=== PATIENT | female | born 1950 | race Two or more races ===

== ENCOUNTER 2018-06-08 18:24 | Inpatient (IN) | payer MEDICARE ==
[~2018-06-08] VITALS: Ht 160 cm; Wt 89.5 kg
[2018-06-08] MEDS ORDERED: IV NORMAL SALINE 1000ML BAG 1,000 ML IV SCH (19:22)
[2018-06-08] MEDS ORDERED: ONDANSETRON PF 4 MG/2 ML VIAL. IV ONE (19:30)
[2018-06-08] MEDS ORDERED: IPRATRPIUM/ALBUTEROL 0.5/2.5MG 3 ML NEBU. NEB ONE (19:30)
[2018-06-08 19:49] LABS: BASO # 0.1 x10^3/uL (0.0-0.2); BASO % 1 % (0-3); EOS % 0 % (0-3); HEMOGLOBIN 15.3 g/dL (12.0-15.5); LYMPH # 2.5 x10^3/uL (1.0-4.8); LYMPH % 39 % (24-48); MEAN CORPUSCULAR HEMOGLOBIN 30 pg (25-35); MEAN CORPUSCULAR HGB CONC 33 g/dL (31-37); MEAN CORPUSCULAR VOLUME 89 fL (79-100); MONO # 0.5 x10^3/uL (0.0-1.1); MONO % 8 % (0-9); NEUT # 3.3 x10^3uL (1.8-7.7); NEUT % 51 % (31-73); PLATELET COUNT 218 x10^3/uL (140-400); RED BLOOD COUNT 5.15 x10^6/uL (3.50-5.40); WHITE BLOOD COUNT 6.4 x10^3/uL (4.0-11.0)
[2018-06-08 19:59] LABS: CALCIUM 8.8 mg/dL (8.5-10.1); CREATININE 0.8 mg/dL (0.6-1.0); GFR 71.8; POTASSIUM 3.8 mmol/L (3.5-5.1)
[2018-06-08 20:04] LABS: ALBUMIN 3.3 g/dL (3.4-5.0); ALBUMIN/GLOBULIN RATIO 0.8 (1.0-1.7); TOTAL BILIRUBIN 0.3 mg/dL (0.2-1.0); TOTAL PROTEIN 7.7 g/dL (6.4-8.2)
[2018-06-08] MEDS: fentaNYL PF VIAL 100 MCG/2 ML VIAL IV PRN ×2 (20:12→21:03)
[2018-06-08 20:36] LABS: BILIRUBIN,URINE NEGATIVE (NEG); CLARITY,URINE CLEAR; COLOR,URINE YELLOW; NITRITE,URINE NEGATIVE (NEG); PH,URINE 5.5; PROTEIN,URINE NEGATIVE (NEG-TRACE); UROBILINOGEN,URINE 0.2 mg/dL (0.2 mg/dL)
[2018-06-08 20:38] LABS: INFLUENZA A PATIENT NEGATIVE (NEGATIVE); INFLUENZA B PATIENT NEGATIVE (NEGATIVE)
[2018-06-08 20:45] LABS: AMORPHOUS SEDIMENT,UR PRESENT /HPF; BACTERIA,URINE 0 /HPF (0-FEW); GRANULAR CASTS,URINE OCCASIONAL /HPF; RBC,URINE OCC /HPF (0-2); SQUAMOUS EPITHELIAL CELL,UR MOD /LPF; WBC,URINE RARE /HPF (0-4)
--- NOTE | 2018-06-08 20:55 | PHYS DOC ---
Past Medical History Past Medical History: Anxiety Past Surgical History: Cholecystectomy, Hysterectomy, Tonsillectomy Alcohol Use: None Drug Use: None Adult General Chief Complaint Chief Complaint: SHORTNESS OF BREATH HPI HPI Patient is a 67-year-old female who presents with complaint of productive cough , fever and chills that started a few days ago. Patient also complains of headache and nausea along with pain in both of her lateral rib margins that she states is due to all the coughing. She states that every time she coughs she feels a lot of pressure in her head that she rates at a 9 out of 10. She denies any neck pain or back pain. Patient states that symptoms are progressively getting worse. She does feel little bit short of breath with exertion. Review of Systems Review of Systems Constitutional: Positive fever and chills [] Respiratory: Positive cough and shortness of breath [] Cardiovascular: No additional information not addressed in HPI [] GI: Denies abdominal pain. Complains of nausea without vomiting or diarrhea. [] : Denies dysuria or hematuria [] Neurologic: Complains of headache without focal weakness or sensory changes [] All other systems were reviewed and found to be within normal limits, except as documented in this note. Current Medications Current Medications Current Medications Medications (Trade) Dose Ordered Sig/Siomara Start Time Stop Time Status Last Admin Dose Admin Albuterol/ Ipratropium (Duoneb) 3 ml 1X ONCE 06/08/18 19:30 06/08/18 19:31 DC 06/08/18 19:54 3 ML Fentanyl Citrate (Fentanyl 2ml Vial) 25 mcg PRN Q15MIN PRN 06/08/18 19:30 06/09/18 19:29 06/08/18 21:03 25 MCG Levofloxacin/ Dextrose 100 ml @ 100 mls/hr 1X ONCE 06/08/18 21:00 06/08/18 21:59 DC 06/08/18 21:03 100 MLS/HR Ondansetron HCl (Zofran) 4 mg 1X ONCE 06/08/18 19:30 06/08/18 19:31 DC 06/08/18 19:49 4 MG Sodium Chloride 1,000 ml @ 1,000 mls/hr Q1H 06/08/18 19:22 06/08/18 20:21 DC 06/08/18 19:48 1,000 MLS/HR Allergies Allergies Allergies Coded Allergies Type Severity Reaction Last Updated Verified aspirin Allergy Intermediate 06/08/18 Yes codeine Adverse Reaction Intermediate HALLUCINATE 06/08/18 Yes Penicillins Adverse Reaction Mild VOMIT 06/08/18 Yes Physical Exam Physical Exam Constitutional: Well developed, well nourished, appears uncomfortable. [] HENT: Normocephalic, atraumatic, bilateral external ears normal, oropharynx moist, no oral exudates, nose normal. [] Eyes: PERRLA, EOMI, conjunctiva normal, no discharge. [] Neck: Normal range of motion, no tenderness, supple, no stridor. [] Cardiovascular: Regular rate and rhythm[] Lungs & Thorax: Fine rhonchi are noted in the bilateral lung bases, left greater than right to auscultation [] Abdomen: Bowel sounds normal, soft, no tenderness. [] Skin: Warm, dry, no erythema, no rash. [] Extremities: No tenderness, no cyanosis, no clubbing, ROM intact, no edema. [] Neurologic: Alert and oriented X 3, no focal deficits noted. [] Current Patient Data Vital Signs Vital Signs Date Time Temp Pulse Resp B/P (MAP) Pulse Ox O2 Delivery O2 Flow Rate FiO2 06/08/18 21:03 24 97 Room Air 06/08/18 20:52 98.2 78 126/58 (80) 98.2 Lab Values Laboratory Tests Test 06/08/18 19:20 06/08/18 19:35 06/08/18 20:20 Influenza Type A Antigen Negative (NEGATIVE) Influenza Type B Antigen Negative (NEGATIVE) White Blood Count 6.4 x10^3/uL (4.0-11.0) Red Blood Count 5.15 x10^6/uL (3.50-5.40) Hemoglobin 15.3 g/dL (12.0-15.5) Hematocrit 46.0 % (36.0-47.0) Mean Corpuscular Volume 89 fL (79-100) Mean Corpuscular Hemoglobin 30 pg (25-35) Mean Corpuscular Hemoglobin Concent 33 g/dL (31-37) Red Cell Distribution Width 14.0 % (11.5-14.5) Platelet Count 218 x10^3/uL (140-400) Neutrophils (%) (Auto) 51 % (31-73) Lymphocytes (%) (Auto) 39 % (24-48) Monocytes (%) (Auto) 8 % (0-9) Eosinophils (%) (Auto) 0 % (0-3) Basophils (%) (Auto) 1 % (0-3) Neutrophils # (Auto) 3.3 x10^3uL (1.8-7.7) Lymphocytes # (Auto) 2.5 x10^3/uL (1.0-4.8) Monocytes # (Auto) 0.5 x10^3/uL (0.0-1.1) Eosinophils # (Auto) 0.0 x10^3/uL (0.0-0.7) Basophils # (Auto) 0.1 x10^3/uL (0.0-0.2) Sodium Level 139 mmol/L (136-145) Potassium Level 3.8 mmol/L (3.5-5.1) Chloride Level 101 mmol/L (98-107) Carbon Dioxide Level 23 mmol/L (21-32) Anion Gap 15 (6-14) H Blood Urea Nitrogen 16 mg/dL (7-20) Creatinine 0.8 mg/dL (0.6-1.0) Estimated GFR (Cockcroft-Gault) 71.8 BUN/Creatinine Ratio 20 (6-20) Glucose Level 96 mg/dL (70-99) Lactic Acid Level 1.7 mmol/L (0.4-2.0) Calcium Level 8.8 mg/dL (8.5-10.1) Total Bilirubin 0.3 mg/dL (0.2-1.0) Aspartate Amino Transferase (AST) 23 U/L (15-37) Alanine Aminotransferase (ALT) 18 U/L (14-59) Alkaline Phosphatase 92 U/L (46-116) VV-Dnx-K-Type Natriuretic Peptide 67 pg/mL (0-124) Total Protein 7.7 g/dL (6.4-8.2) Albumin 3.3 g/dL (3.4-5.0) L Albumin/Globulin Ratio 0.8 (1.0-1.7) L Urine Collection Type Unknown Urine Color Yellow Urine Clarity Clear Urine pH 5.5 Urine Specific [place] 1.025 Urine Protein Negative mg/dL (NEG-TRACE) Urine Glucose (UA) Negative mg/dL (NEG) Urine Ketones (Stick) 15 mg/dL (NEG) Urine Blood Trace (NEG) Urine Nitrite Negative (NEG) Urine Bilirubin Negative (NEG) Urine Urobilinogen Dipstick 0.2 mg/dL (0.2 mg/dL) Urine Leukocyte Esterase Negative (NEG) Urine RBC Occ /HPF (0-2) Urine WBC Rare /HPF (0-4) Urine Squamous Epithelial Cells Mod /LPF Urine Amorphous Sediment Present /HPF Urine Bacteria 0 /HPF (0-FEW) Urine Granular Casts Occasional /HPF Urine Mucus Mod /LPF Laboratory Tests 06/08/18 19:35 Laboratory Tests 06/08/18 19:35 EKG EKG [] Interpretation Time: EKG demonstrates a sinus rhythm with rate of 74. Radiology/Procedures Radiology/Procedures [] Impressions: Chest x-ray demonstrates bibasilar infiltrate Course & Med Decision Making Course & Med Decision Making Pertinent Labs and Imaging studies reviewed. (See chart for details) [] Dragon Disclaimer Dragon Disclaimer This electronic medical record was generated, in whole or in part, using a voice recognition dictation system. Departure Departure Impression: Primary Impression: Community acquired pneumonia Disposition: ADMITTED INPATIENT Admitting Physician: Ovidio Tucker Condition: IMPROVED Referrals: UNKNOWN PCP NAME (PCP) Problem Qualifiers Primary Impression: Community acquired pneumonia Laterality: unspecified laterality Qualified Codes: J18.9 - Pneumonia, unspecified organism IGNACIO TOPETE Jr. DO Jun 08, 2018 20:55
--- NOTE | 2018-06-08 22:29 | RAD ---
CT HEAD WO CONTRAST History: Severe headache Comparison: None. Technique: Noncontrast CT imaging was performed of the head. Exposure: One or more of the following individualized dose reduction techniques were utilized for this examination: 1. Automated exposure control 2. Adjustment of the mA and/or kV according to patient size 3. Use of iterative reconstruction technique. Findings: There is mild motion. No acute extra-axial or parenchymal hemorrhage is identified. There is no significant intra-axial mass effect, midline shift, or extra-axial fluid collection. The sanchez-white differentiation of the major vascular territories is preserved. The ventricles, sulci, and cisterns are within normal limits in size and configuration. The mastoid air cells and the visualized paranasal sinuses are aerated. No acute calvarial abnormality is identified. There is right germain bullosa. Impression: 1. No acute intracranial abnormality is identified. Electronically signed by: Roberto Giron MD (06/08/2018 10:26 PM) [facility]
[2018-06-08] MEDS ORDERED: ONDANSETRON PF 4 MG/2 ML VIAL. IV PRN (23:15)
[2018-06-08] MEDS ORDERED: MORPHINE SULFATE 4 MG/ML VIAL. IV PRN (23:15)
[2018-06-08] MEDS ORDERED: ACETAMINOPHEN 325 MG TABLET. PO PRN (23:15)
[2018-06-09] VITALS (8 sets, daily range): BP systolic 116–137; BP diastolic 41–59
[2018-06-09] MEDS: IV NORMAL SALINE 1000ML BAG 1,000 ML IV SCH ×3 (00:49→19:15)
[2018-06-09 06:45] LABS: BASO # 0.1 x10^3/uL (0.0-0.2); BASO % 1 % (0-3); EOS % 0 % (0-3); HEMATOCRIT 40.7 % (36.0-47.0); HEMOGLOBIN 13.4 g/dL (12.0-15.5); LYMPH % 54 % (24-48); MEAN CORPUSCULAR HEMOGLOBIN 30 pg (25-35); MEAN CORPUSCULAR HGB CONC 33 g/dL (31-37); MEAN CORPUSCULAR VOLUME 90 fL (79-100); MONO # 0.5 x10^3/uL (0.0-1.1); MONO % 9 % (0-9); NEUT % 36 % (31-73); PLATELET COUNT 181 x10^3/uL (140-400); RED BLOOD COUNT 4.54 x10^6/uL (3.50-5.40); WHITE BLOOD COUNT 5.5 x10^3/uL (4.0-11.0)
--- NOTE | 2018-06-09 06:58 | EKG ---
[facility] [address] [place] [address] Test Date: 2018-06-08 Test Time: 19:13:30 Pat Name: WILLIAM KANG Department: Room: [facility] Gender: F Evs Attendant: MANISH : 1950 Requested By: IGNACIO TOPETE Order Number: [id number] Reading MD: Kraig Mccain MD Measurements Intervals [place] Rate: 73 P: 37 WA: 142 QRS: -28 QRSD: 76 T: 18 QT: 374 QTc: 415 Interpretive Statements SINUS RHYTHM Electronically Signed On 06-10-2018 16:34:19 CDT by Kraig Mccain MD
[2018-06-09 07:02] LABS: CALCIUM 8.1 mg/dL (8.5-10.1); CREATININE 0.6 mg/dL (0.6-1.0); POTASSIUM 3.6 mmol/L (3.5-5.1)
--- NOTE | 2018-06-09 07:14 | NUR ---
Pt admitted this am with complaints of coughing and discomfort with VALENZUELA due to coughing. Pt given fentanyl IV in ED for pain. Pt with pain medication available however not asking for any at this time. Pt ambulating with steady gait with assist of nurse. Pt uses a cane at home. Pt with IV fluids infusing at this time. No complaints noted. Pt instructed to call for assistance. Pt verbalize understanding.
[2018-06-09] MEDS: IPRATRPIUM/ALBUTEROL 0.5/2.5MG 3 ML NEBU. NEB SCH ×4 (07:23→20:24)
--- NOTE | 2018-06-09 08:18 | PDOC1 ---
History and Physical Date of Admission Date of Admission DATE: 06/09/18 TIME: 08:17 Identification/Chief Complaint Chief Complaint Shortness of breath Source Source: Chart review, Patient History of Present Illness History of Present Illness 67-year-old female smoker who presents with complaint of productive cough, fever and chills that started a few days ago. Patient also complains of headache and nausea along with pain in both of her lateral rib margins that she states is due to all the coughing. She states that every time she coughs she feels a lot of pressure in her head that she rates at a 9 out of 10. She rates her rib pain 7/10 when she coughs. She denies any neck pain or back pain. Patient states that symptoms are progressively getting worse. She does feel little bit short of breath with exertion. Rapid flu negative. She is concerned her sputum has turned from yellow to sanchez. She quit smoking this past wednesday. Past Medical History Cardiovascular: No pertinent hx Pulmonary: No pertinent hx GI: No pertinent hx Heme/Onc: No pertinent hx Hepatobiliary: No pertinent hx Psych: No pertinent hx Rheumatologic: No pertinent hx Infectious disease: No pertinent hx ENT: No pertinent hx Renal/: No pertinent hx Endocrine: No pertinent hx Dermatology: No pertinent hx Past Surgical History Past Surgical History: No pertinent history Family History Family History: Family History Unknown Social History Smoke: 1 pack per day ALCOHOL: rare Drugs: None Current Problem List Problem List Problems Medical Problems: (1) Community acquired pneumonia Status: Acute Current Medications Current Medications Current Medications Sodium Chloride 1,000 ml @ 1,000 mls/hr Q1H IV Last administered on 06/08/18at 19:48; Start 06/08/18 at 19:22; Stop 06/08/18 at 20:21; Status DC Albuterol/ Ipratropium (Duoneb) 3 ml 1X ONCE NEB Last administered on at 19:54; Start 06/08/18 at 19:30; Stop 06/08/18 at 19:31; Status DC Fentanyl Citrate (Fentanyl 2ml Vial) 25 mcg PRN Q15MIN PRN IV PAIN GREATER THAN 3/10 Last administered on 06/08/18at 21:03; Start 06/08/18 at 19:30; Stop at 19:29 Ondansetron HCl (Zofran) 4 mg 1X ONCE IV Last administered on 06/08/18at 19:49 ; Start 06/08/18 at 19:30; Stop 06/08/18 at 19:31; Status DC Levofloxacin/ Dextrose 100 ml @ 100 mls/hr 1X ONCE IV Last administered on at 21:03; Start 06/08/18 at 21:00; Stop 06/08/18 at 21:59; Status DC Ondansetron HCl (Zofran) 4 mg PRN Q8HRS PRN IV NAUSEA/VOMITING; Start 06/08/18 at 23:15; Stop 06/09/18 at 23:14 Morphine Sulfate (Morphine Sulfate) 2 mg PRN Q2HR PRN IV PAIN; Start 06/08/18 at 23:15; Stop 06/09/18 at 23:14 Sodium Chloride 1,000 ml @ 100 mls/hr Q10H IV Last administered on 06/09/18at 00:49; Start 06/08/18 at 23:15; Stop 06/09/18 at 23:14 Acetaminophen (Tylenol) 650 mg PRN Q4HRS PRN PO FEVER; Start 06/08/18 at 23:15 ; Stop 06/09/18 at 23:14 Albuterol/ Ipratropium (Duoneb) 3 ml RTQID NEB Last administered on 06/09/18at 07:23; Start 06/09/18 at 08:00; Stop 06/10/18 at 07:59 Influenza Virus Vaccine (Afluria Trivalent [id number] Syringe) 0.5 ml ONCE ONCE VAX IM ; Start 06/09/18 at 09:00; Stop 06/09/18 at 09:01 Allergies Allergies: Coded Allergies: aspirin (Verified Allergy, Intermediate, 06/08/18) codeine (Verified Adverse Reaction, Intermediate, HALLUCINATE, 06/08/18) Penicillins (Verified Adverse Reaction, Mild, VOMIT, 06/08/18) ROS General: YES: Fatigue, Malaise, Appetite; No: Chills, Night Sweats, Other PSYCHOLOGICAL ROS: No: Anxiety, Behavioral Disorder, Concentration difficultie , Decreased libido, Depression, Disorientation, Hallucinations, Hostility, Irritablity, Memory difficulties, Mood Swings, Obsessive thoughts, Physical abuse, Sexual abuse, Sleep disturbances, Suicidal ideation, Other Eyes: No Blurry vision, No Decreased vision, No Double vision, No Dry eyes, No Excessive tearing, No Eye Pain, No Itchy Eyes, No Loss of vision, No Photophobia , No Scotomata, No Uses contacts, No Uses glasses, No Other HEENT: No: Heacaches, Visual Changes, Hearing change, Nasal congestion, Nasal discharge, Oral lesions, Sinus pain, Sore Throat, Epistaxis, Sneezing, Snoring, Tinnitus, Vertigo, Vocal changes, Other ALLERGY AND IMMUNOLOGY: No: Hives, Insect Bite Sensitivity, Itchy/Watery Eyes, Nasal Congestion, Post Nasal Drip, Seasonal Allergies, Other Hematological and Lymphatic: No: Bleeding Problems, Blood Clots, Blood Transfusions, Brusing, Night Sweats, Pallor, Swollen Lymph Nodes, Other ENDOCRINE: No: Breast Changes, Galactorrhea, Hair Pattern Changes, Hot Flashes , Malaise/lethargy, Mood Swings, Palpitations, Polydipsia/polyuria, Skin Changes , Temperature Intolerance, Unexpected Weight Changes, Other Breast: No New/Changing Breast Lumps, No Nipple changes, No Nipple discharge, No Other Respiratory: YES: Cough, Pleuritic Pain, Shortness of breath, SOB with excertion, Sputum Changes, Tachypnea, Wheezing; No: Hemoptysis, Orthopnea, Stridor, Other Cardiovascular: No Chest Pain, No Palpitations, No Orthopnea, No Paroxysmal Noc. Dyspnea, No Edema, No Lt Headedness, No Other Gastrointestinal: Yes Nausea; No Vomiting, No Abdominal Pain, No Diarrhea, No Constipation, No Melena, No Hematochezia, No Other Genitourinary: No Dysuria, No Frequency, No Incontinence, No Hematuria, No Retention, No Discharge, No Urgency, No Pain, No Flank Pain, No Other, No , No , No , No , No , No , No Musculoskeletal: No Gait Disturbance, No Joint Pain, No Joint Stiffness, No Joint Swelling, No Muscle Pain, No Muscular Weakness, No Pain In:, No Swelling In:, No Other Neurological: No Behavorial Changes, No Bowel/Bladder ControlChng, No Confusion , No Dizziness, No Gait Disturbance, No Headaches, No Impaired Coord/balance, No Memory Loss, No Numbness/Tingling, No Seizures, No Speech Problems, No Tremors, No Visual Changes, No Weakness, No Other Skin: No Dry Skin, No Eczema, No Hair Changes, No Lumps, No Mole Changes, No Mottling, No Nail Changes, No Pruritus, No Rash, No Skin Lesion Changes, No Other, No Acne Vitals Vitals Vital Signs Date Time Temp Pulse Resp B/P (MAP) Pulse Ox O2 Delivery O2 Flow Rate FiO2 06/09/18 07:23 94 Room Air 06/09/18 07:00 98.2 73 18 116/53 (74) 98.2 Labs Labs Laboratory Tests Test 06/08/18 19:20 06/08/18 19:35 06/08/18 20:20 06/09/18 06:11 Influenza Type A Antigen Negative (NEGATIVE) Influenza Type B Antigen Negative (NEGATIVE) White Blood Count 6.4 x10^3/uL (4.0-11.0) 5.5 x10^3/uL (4.0-11.0) Red Blood Count 5.15 x10^6/uL (3.50-5.40) 4.54 x10^6/uL (3.50-5.40) Hemoglobin 15.3 g/dL (12.0-15.5) 13.4 g/dL (12.0-15.5) Hematocrit 46.0 % (36.0-47.0) 40.7 % (36.0-47.0) Mean Corpuscular Volume 89 fL (79-100) 90 fL (79-100) Mean Corpuscular Hemoglobin 30 pg (25-35) 30 pg (25-35) Mean Corpuscular Hemoglobin Concent 33 g/dL (31-37) 33 g/dL (31-37) Red Cell Distribution Width 14.0 % (11.5-14.5) 14.0 % (11.5-14.5) Platelet Count 218 x10^3/uL (140-400) 181 x10^3/uL (140-400) Neutrophils (%) (Auto) 51 % (31-73) 36 % (31-73) Lymphocytes (%) (Auto) 39 % (24-48) 54 % (24-48) Monocytes (%) (Auto) 8 % (0-9) 9 % (0-9) Eosinophils (%) (Auto) 0 % (0-3) 0 % (0-3) Basophils (%) (Auto) 1 % (0-3) 1 % (0-3) Neutrophils # (Auto) 3.3 x10^3uL (1.8-7.7) 2.0 x10^3uL (1.8-7.7) Lymphocytes # (Auto) 2.5 x10^3/uL (1.0-4.8) 3.0 x10^3/uL (1.0-4.8) Monocytes # (Auto) 0.5 x10^3/uL (0.0-1.1) 0.5 x10^3/uL (0.0-1.1) Eosinophils # (Auto) 0.0 x10^3/uL (0.0-0.7) 0.0 x10^3/uL (0.0-0.7) Basophils # (Auto) 0.1 x10^3/uL (0.0-0.2) 0.1 x10^3/uL (0.0-0.2) Sodium Level 139 mmol/L (136-145) 137 mmol/L (136-145) Potassium Level 3.8 mmol/L (3.5-5.1) 3.6 mmol/L (3.5-5.1) Chloride Level 101 mmol/L (98-107) 102 mmol/L (98-107) Carbon Dioxide Level 23 mmol/L (21-32) 24 mmol/L (21-32) Anion Gap 15 (6-14) 11 (6-14) Blood Urea Nitrogen 16 mg/dL (7-20) 11 mg/dL (7-20) Creatinine 0.8 mg/dL (0.6-1.0) 0.6 mg/dL (0.6-1.0) Estimated GFR (Cockcroft-Gault) 71.8 100.0 BUN/Creatinine Ratio 20 (6-20) Glucose Level 96 mg/dL (70-99) 94 mg/dL (70-99) Lactic Acid Level 1.7 mmol/L (0.4-2.0) Calcium Level 8.8 mg/dL (8.5-10.1) 8.1 mg/dL (8.5-10.1) Total Bilirubin 0.3 mg/dL (0.2-1.0) Aspartate Amino Transf (AST/SGOT) 23 U/L (15-37) Alanine Aminotransferase (ALT/SGPT) 18 U/L (14-59) Alkaline Phosphatase 92 U/L (46-116) CJ-Uqg-A-Type Natriuretic Peptide 67 pg/mL (0-124) Total Protein 7.7 g/dL (6.4-8.2) Albumin 3.3 g/dL (3.4-5.0) Albumin/Globulin Ratio 0.8 (1.0-1.7) Urine Collection Type Unknown Urine Color Yellow Urine Clarity Clear Urine pH 5.5 Urine Specific [place] 1.025 Urine Protein Negative mg/dL (NEG-TRACE) Urine Glucose (UA) Negative mg/dL (NEG) Urine Ketones (Stick) 15 mg/dL (NEG) Urine Blood Trace (NEG) Urine Nitrite Negative (NEG) Urine Bilirubin Negative (NEG) Urine Urobilinogen Dipstick 0.2 mg/dL (0.2 mg/dL) Urine Leukocyte Esterase Negative (NEG) Urine RBC Occ /HPF (0-2) Urine WBC Rare /HPF (0-4) Urine Squamous Epithelial Cells Mod /LPF Urine Amorphous Sediment Present /HPF Urine Bacteria 0 /HPF (0-FEW) Urine Granular Casts Occasional /HPF Urine Mucus Mod /LPF Laboratory Tests Test 06/08/18 19:20 06/08/18 19:35 06/08/18 20:20 06/09/18 06:11 Influenza Type A Antigen Negative (NEGATIVE) Influenza Type B Antigen Negative (NEGATIVE) White Blood Count 6.4 x10^3/uL (4.0-11.0) 5.5 x10^3/uL (4.0-11.0) Red Blood Count 5.15 x10^6/uL (3.50-5.40) 4.54 x10^6/uL (3.50-5.40) Hemoglobin 15.3 g/dL (12.0-15.5) 13.4 g/dL (12.0-15.5) Hematocrit 46.0 % (36.0-47.0) 40.7 % (36.0-47.0) Mean Corpuscular Volume 89 fL (79-100) 90 fL (79-100) Mean Corpuscular Hemoglobin 30 pg (25-35) 30 pg (25-35) Mean Corpuscular Hemoglobin Concent 33 g/dL (31-37) 33 g/dL (31-37) Red Cell Distribution Width 14.0 % (11.5-14.5) 14.0 % (11.5-14.5) Platelet Count 218 x10^3/uL (140-400) 181 x10^3/uL (140-400) Neutrophils (%) (Auto) 51 % (31-73) 36 % (31-73) Lymphocytes (%) (Auto) 39 % (24-48) 54 % (24-48) Monocytes (%) (Auto) 8 % (0-9) 9 % (0-9) Eosinophils (%) (Auto) 0 % (0-3) 0 % (0-3) Basophils (%) (Auto) 1 % (0-3) 1 % (0-3) Neutrophils # (Auto) 3.3 x10^3uL (1.8-7.7) 2.0 x10^3uL (1.8-7.7) Lymphocytes # (Auto) 2.5 x10^3/uL (1.0-4.8) 3.0 x10^3/uL (1.0-4.8) Monocytes # (Auto) 0.5 x10^3/uL (0.0-1.1) 0.5 x10^3/uL (0.0-1.1) Eosinophils # (Auto) 0.0 x10^3/uL (0.0-0.7) 0.0 x10^3/uL (0.0-0.7) Basophils # (Auto) 0.1 x10^3/uL (0.0-0.2) 0.1 x10^3/uL (0.0-0.2) Sodium Level 139 mmol/L (136-145) 137 mmol/L (136-145) Potassium Level 3.8 mmol/L (3.5-5.1) 3.6 mmol/L (3.5-5.1) Chloride Level 101 mmol/L (98-107) 102 mmol/L (98-107) Carbon Dioxide Level 23 mmol/L (21-32) 24 mmol/L (21-32) Anion Gap 15 (6-14) 11 (6-14) Blood Urea Nitrogen 16 mg/dL (7-20) 11 mg/dL (7-20) Creatinine 0.8 mg/dL (0.6-1.0) 0.6 mg/dL (0.6-1.0) Estimated GFR (Cockcroft-Gault) 71.8 100.0 BUN/Creatinine Ratio 20 (6-20) Glucose Level 96 mg/dL (70-99) 94 mg/dL (70-99) Lactic Acid Level 1.7 mmol/L (0.4-2.0) Calcium Level 8.8 mg/dL (8.5-10.1) 8.1 mg/dL (8.5-10.1) Total Bilirubin 0.3 mg/dL (0.2-1.0) Aspartate Amino Transf (AST/SGOT) 23 U/L (15-37) Alanine Aminotransferase (ALT/SGPT) 18 U/L (14-59) Alkaline Phosphatase 92 U/L (46-116) YS-Xqm-B-Type Natriuretic Peptide 67 pg/mL (0-124) Total Protein 7.7 g/dL (6.4-8.2) Albumin 3.3 g/dL (3.4-5.0) Albumin/Globulin Ratio 0.8 (1.0-1.7) Urine Collection Type Unknown Urine Color Yellow Urine Clarity Clear Urine pH 5.5 Urine Specific [place] 1.025 Urine Protein Negative mg/dL (NEG-TRACE) Urine Glucose (UA) Negative mg/dL (NEG) Urine Ketones (Stick) 15 mg/dL (NEG) Urine Blood Trace (NEG) Urine Nitrite Negative (NEG) Urine Bilirubin Negative (NEG) Urine Urobilinogen Dipstick 0.2 mg/dL (0.2 mg/dL) Urine Leukocyte Esterase Negative (NEG) Urine RBC Occ /HPF (0-2) Urine WBC Rare /HPF (0-4) Urine Squamous Epithelial Cells Mod /LPF Urine Amorphous Sediment Present /HPF Urine Bacteria 0 /HPF (0-FEW) Urine Granular Casts Occasional /HPF Urine Mucus Mod /LPF Images Images CT head - 1. No acute intracranial abnormality is identified. CXR - Mild bibasilar lung airspace opacities likely atelectasis or infiltrates. VTE Prophylaxis Ordered VTE Prophylaxis Devices: No VTE Pharmacological Prophylaxi: Yes Assessment/Plan Assessment/Plan A/P: Shortness of breath - with her history of smoking likely has undiagnosed COPD, nebs for now Community acquired pneumonia - with bilateral infiltrates, will need atypical coverage - levaquin for now Smoker - counseled, she has quit, does not wish for nicotine replacement therapy. FEN - General diet PPX - lovenox FULL CODE Inpatient for community acquired pneumonia, likely 2 midnights. OSIRIS ROBLES MD Jun 09, 2018 08:18
--- NOTE | 2018-06-09 08:28 | RAD ---
Chest, PA and Lateral: Technique: PA and lateral views of the chest were obtained. History: Shortness of breath, dizziness. Comparison: None available. Findings: The heart size grossly appears unremarkable. Mild bibasilar lung airspace opacities likely atelectasis or infiltrates. Mild degenerative changes thoracic spine. IMPRESSION: Mild bibasilar lung airspace opacities likely atelectasis or infiltrates. Electronically signed by: Osman Reeves MD (06/09/2018 8:24 AM) [id number]
--- NOTE | 2018-06-09 14:33 | NUR ---
SW following for discharge planning. Chart reviewed. Pt lives at home with family. No discharge recommendations/SW needs noted at this time. SW will continue to follow.
[2018-06-09] MEDS ORDERED: ONDANSETRON PF 4 MG/2 ML VIAL. IV PRN (14:45)
[2018-06-09] MEDS ORDERED: ENOXAPARIN 40 MG/0.4 ML SYRINGE. SQ SCH (16:00)
[2018-06-09] MEDS: KETOROLAC 30 MG/ML VIAL. IV PRN (16:38)
[2018-06-10] MEDS: KETOROLAC 30 MG/ML VIAL. IV PRN ×2 (01:32→08:50)
[2018-06-10 03:08] VITALS: BP 125/51
[2018-06-10 07:00] VITALS: BP 136/57
[2018-06-10] MEDS: IPRATRPIUM/ALBUTEROL 0.5/2.5MG 3 ML NEBU. NEB SCH ×2 (07:12→11:34)
--- NOTE | 2018-06-10 08:26 | PDOC ---
PROGRESS NOTES Chief Complaint Chief Complaint A/P: Shortness of breath - with her history of smoking likely has undiagnosed COPD, nebs for now Community acquired pneumonia - with bilateral infiltrates, will need atypical coverage - levaquin for now Smoker - counseled, she has quit, does not wish for nicotine replacement therapy. FEN - General diet PPX - lovenox FULL CODE Inpatient for community acquired pneumonia, likely 2 midnights. History of Present Illness History of Present Illness 67-year-old female smoker who presents with complaint of productive cough, fever and chills that started a few days ago. Patient also complains of headache and nausea along with pain in both of her lateral rib margins that she states is due to all the coughing. She states that every time she coughs she feels a lot of pressure in her head that she rates at a 9 out of 10. She rates her rib pain 7/10 when she coughs. She denies any neck pain or back pain. Patient states that symptoms are progressively getting worse. She does feel little bit short of breath with exertion. Rapid flu negative. She is concerned her sputum has turned from yellow to sanchez. She quit smoking this past wednesday. After nebulizer treatments overnight for 2 nights and levaquin for community acquired pneumonia she has improved. She feels much better and feels she wishes to go home before "I catch something else". Denies CP or GI symptoms Vitals Vitals Vital Signs Date Time Temp Pulse Resp B/P (MAP) Pulse Ox O2 Delivery O2 Flow Rate FiO2 06/10/18 07:13 95 Room Air 06/10/18 03:08 98.6 69 18 125/51 (75) 98.6 Physical Exam General: Alert, Oriented X3, Cooperative Heart: Regular rate, Normal S1, Normal S2 Lungs: Crackles Abdomen: Normal bowel sounds, Soft Extremities: No clubbing, No cyanosis Skin: No rashes, No breakdown Assessment and Plan Assessmemt and Plan Problems Medical Problems: (1) Community acquired pneumonia Status: Acute Comment Review of Relevant I have reviewed the following items yadira (where applicable) has been applied. Labs Laboratory Tests Test 06/08/18 19:20 06/08/18 19:35 06/08/18 20:20 06/09/18 06:11 Influenza Type A Antigen Negative (NEGATIVE) Influenza Type B Antigen Negative (NEGATIVE) White Blood Count 6.4 x10^3/uL (4.0-11.0) 5.5 x10^3/uL (4.0-11.0) Red Blood Count 5.15 x10^6/uL (3.50-5.40) 4.54 x10^6/uL (3.50-5.40) Hemoglobin 15.3 g/dL (12.0-15.5) 13.4 g/dL (12.0-15.5) Hematocrit 46.0 % (36.0-47.0) 40.7 % (36.0-47.0) Mean Corpuscular Volume 89 fL (79-100) 90 fL (79-100) Mean Corpuscular Hemoglobin 30 pg (25-35) 30 pg (25-35) Mean Corpuscular Hemoglobin Concent 33 g/dL (31-37) 33 g/dL (31-37) Red Cell Distribution Width 14.0 % (11.5-14.5) 14.0 % (11.5-14.5) Platelet Count 218 x10^3/uL (140-400) 181 x10^3/uL (140-400) Neutrophils (%) (Auto) 51 % (31-73) 36 % (31-73) Lymphocytes (%) (Auto) 39 % (24-48) 54 % (24-48) Monocytes (%) (Auto) 8 % (0-9) 9 % (0-9) Eosinophils (%) (Auto) 0 % (0-3) 0 % (0-3) Basophils (%) (Auto) 1 % (0-3) 1 % (0-3) Neutrophils # (Auto) 3.3 x10^3uL (1.8-7.7) 2.0 x10^3uL (1.8-7.7) Lymphocytes # (Auto) 2.5 x10^3/uL (1.0-4.8) 3.0 x10^3/uL (1.0-4.8) Monocytes # (Auto) 0.5 x10^3/uL (0.0-1.1) 0.5 x10^3/uL (0.0-1.1) Eosinophils # (Auto) 0.0 x10^3/uL (0.0-0.7) 0.0 x10^3/uL (0.0-0.7) Basophils # (Auto) 0.1 x10^3/uL (0.0-0.2) 0.1 x10^3/uL (0.0-0.2) Sodium Level 139 mmol/L (136-145) 137 mmol/L (136-145) Potassium Level 3.8 mmol/L (3.5-5.1) 3.6 mmol/L (3.5-5.1) Chloride Level 101 mmol/L (98-107) 102 mmol/L (98-107) Carbon Dioxide Level 23 mmol/L (21-32) 24 mmol/L (21-32) Anion Gap 15 (6-14) 11 (6-14) Blood Urea Nitrogen 16 mg/dL (7-20) 11 mg/dL (7-20) Creatinine 0.8 mg/dL (0.6-1.0) 0.6 mg/dL (0.6-1.0) Estimated GFR (Cockcroft-Gault) 71.8 100.0 BUN/Creatinine Ratio 20 (6-20) Glucose Level 96 mg/dL (70-99) 94 mg/dL (70-99) Lactic Acid Level 1.7 mmol/L (0.4-2.0) Calcium Level 8.8 mg/dL (8.5-10.1) 8.1 mg/dL (8.5-10.1) Total Bilirubin 0.3 mg/dL (0.2-1.0) Aspartate Amino Transf (AST/SGOT) 23 U/L (15-37) Alanine Aminotransferase (ALT/SGPT) 18 U/L (14-59) Alkaline Phosphatase 92 U/L (46-116) GD-[id number]-Type Natriuretic Peptide 67 pg/mL (0-124) Total Protein 7.7 g/dL (6.4-8.2) Albumin 3.3 g/dL (3.4-5.0) Albumin/Globulin Ratio 0.8 (1.0-1.7) Urine Collection Type Unknown Urine Color Yellow Urine Clarity Clear Urine pH 5.5 Urine Specific [place] 1.025 Urine Protein Negative mg/dL (NEG-TRACE) Urine Glucose (UA) Negative mg/dL (NEG) Urine Ketones (Stick) 15 mg/dL (NEG) Urine Blood Trace (NEG) Urine Nitrite Negative (NEG) Urine Bilirubin Negative (NEG) Urine Urobilinogen Dipstick 0.2 mg/dL (0.2 mg/dL) Urine Leukocyte Esterase Negative (NEG) Urine RBC Occ /HPF (0-2) Urine WBC Rare /HPF (0-4) Urine Squamous Epithelial Cells Mod /LPF Urine Amorphous Sediment Present /HPF Urine Bacteria 0 /HPF (0-FEW) Urine Granular Casts Occasional /HPF Urine Mucus Mod /LPF Microbiology 06/08/18 Blood Culture - Preliminary, Resulted NO GROWTH AFTER 1 DAY Medications Current Medications Sodium Chloride 1,000 ml @ 1,000 mls/hr Q1H IV Last administered on 06/08/18at 19:48; Start 06/08/18 at 19:22; Stop 06/08/18 at 20:21; Status DC Albuterol/ Ipratropium (Duoneb) 3 ml 1X ONCE NEB Last administered on at 19:54; Start 06/08/18 at 19:30; Stop 06/08/18 at 19:31; Status DC Fentanyl Citrate (Fentanyl 2ml Vial) 25 mcg PRN Q15MIN PRN IV PAIN GREATER THAN 3/10 Last administered on 06/08/18at 21:03; Start 06/08/18 at 19:30; Stop at 19:29; Status DC Ondansetron HCl (Zofran) 4 mg 1X ONCE IV Last administered on 06/08/18at 19:49 ; Start 06/08/18 at 19:30; Stop 06/08/18 at 19:31; Status DC Levofloxacin/ Dextrose 100 ml @ 100 mls/hr 1X ONCE IV Last administered on at 21:03; Start 06/08/18 at 21:00; Stop 06/08/18 at 21:59; Status DC Ondansetron HCl (Zofran) 4 mg PRN Q8HRS PRN IV NAUSEA/VOMITING; Start 06/08/18 at 23:15; Stop 06/09/18 at 14:47; Status DC Morphine Sulfate (Morphine Sulfate) 2 mg PRN Q2HR PRN IV PAIN; Start 06/08/18 at 23:15; Stop 06/09/18 at 23:14; Status DC Sodium Chloride 1,000 ml @ 100 mls/hr Q10H IV Last administered on 06/09/18at 11:32; Start 06/08/18 at 23:15; Stop 06/09/18 at 23:14; Status DC Acetaminophen (Tylenol) 650 mg PRN Q4HRS PRN PO FEVER; Start 06/08/18 at 23:15 ; Stop 06/09/18 at 23:14; Status DC Albuterol/ Ipratropium (Duoneb) 3 ml RTQID NEB Last administered on 06/09/18at 10:57; Start 06/09/18 at 08:00; Stop 06/09/18 at 14:47; Status DC Influenza Virus Vaccine (Afluria Trivalent [id number] Syringe) 0.5 ml ONCE ONCE VAX IM ; Start 06/09/18 at 09:00; Stop 06/09/18 at 09:01; Status DC Ketorolac Tromethamine (Toradol 30mg Vial) 30 mg PRN Q6HRS PRN IV PAIN Last administered on 06/10/18at 01:32; Start 06/09/18 at 10:45; Stop 06/14/18 at 10:44 Enoxaparin Sodium (Lovenox 40mg Syringe) 40 mg Q24H SQ Last administered on at 16:31; Start 06/09/18 at 16:00 Levofloxacin/ Dextrose 100 ml @ 100 mls/hr Q24H IV ; Start 06/10/18 at 07:00 Albuterol/ Ipratropium (Duoneb) 3 ml RTQID NEB Last administered on 06/10/18at 07:12; Start 06/09/18 at 16:00 Ondansetron HCl (Zofran) 4 mg PRN Q6HRS PRN IV NAUSEA/VOMITING; Start 06/09/18 at 14:45 Vitals/I & O Vital Sign - Last 24 Hours 06/09/18 06/09/18 06/09/18 06/09/18 10:58 11:00 15:00 15:59 Temp 98.4 98.0 98.4 98.0 Pulse 75 68 Resp 18 18 B/P (MAP) 124/54 (77) 137/59 (85) Pulse Ox 96 94 95 92 O2 Delivery Room Air Room Air Room Air Room Air 06/09/18 06/09/18 06/09/18/21/19 19:49 19:54 20:25 23:29 Temp 98.0 98.1 98.0 98.1 Pulse 67 70 Resp 18 16 B/P (MAP) 117/52 (73) 124/45 (71) Pulse Ox 96 95 O2 Delivery Room Air Room Air Room Air Room Air 06/10/18 06/10/18 03:08 07:13 Temp 98.6 98.6 Pulse 69 Resp 18 B/P (MAP) 125/51 (75) Pulse Ox 95 95 O2 Delivery Room Air Room Air Intake and Output 06/09/18 06/09/18 06/10/18 15:00 23:00 07:00 Intake Total 450 ml Balance 450 ml OSIRIS ROBLES MD Jun 10, 2018 08:26
[2018-06-10] MEDS ORDERED: LEVO500T59 PO (10:10)
[2018-06-10] MEDS ORDERED: IPRA4AER IH (10:15)
--- NOTE | 2018-06-10 10:19 | PDOC3 ---
Discharge Summary Visit Information Date of Admission: Jun 08, 2018 Date of Discharge: Jun 10, 2018 Admitting Diagnosis: CAP Final Diagnosis Problems Medical Problems: (1) Community acquired pneumonia Status: Acute Brief Hospital Course Allergies Allergies Coded Allergies Type Severity Reaction Last Updated Verified aspirin Allergy Intermediate 06/08/18 Yes codeine Adverse Reaction Intermediate HALLUCINATE 06/08/18 Yes Penicillins Adverse Reaction Mild VOMIT 06/08/18 Yes Vital Signs Vital Signs Date Time Temp Pulse Resp B/P (MAP) Pulse Ox O2 Delivery O2 Flow Rate FiO2 06/10/18 07:13 95 Room Air 06/10/18 07:00 97.9 58 18 136/57 (83) 97.9 Lab Results Laboratory Tests Test 06/08/18 19:20 06/08/18 19:35 06/08/18 20:20 06/09/18 06:11 Influenza Type A Antigen Negative (NEGATIVE) Influenza Type B Antigen Negative (NEGATIVE) White Blood Count 6.4 x10^3/uL (4.0-11.0) 5.5 x10^3/uL (4.0-11.0) Red Blood Count 5.15 x10^6/uL (3.50-5.40) 4.54 x10^6/uL (3.50-5.40) Hemoglobin 15.3 g/dL (12.0-15.5) 13.4 g/dL (12.0-15.5) Hematocrit 46.0 % (36.0-47.0) 40.7 % (36.0-47.0) Mean Corpuscular Volume 89 fL (79-100) 90 fL (79-100) Mean Corpuscular Hemoglobin 30 pg (25-35) 30 pg (25-35) Mean Corpuscular Hemoglobin Concent 33 g/dL (31-37) 33 g/dL (31-37) Red Cell Distribution Width 14.0 % (11.5-14.5) 14.0 % (11.5-14.5) Platelet Count 218 x10^3/uL (140-400) 181 x10^3/uL (140-400) Neutrophils (%) (Auto) 51 % (31-73) 36 % (31-73) Lymphocytes (%) (Auto) 39 % (24-48) 54 % (24-48) Monocytes (%) (Auto) 8 % (0-9) 9 % (0-9) Eosinophils (%) (Auto) 0 % (0-3) 0 % (0-3) Basophils (%) (Auto) 1 % (0-3) 1 % (0-3) Neutrophils # (Auto) 3.3 x10^3uL (1.8-7.7) 2.0 x10^3uL (1.8-7.7) Lymphocytes # (Auto) 2.5 x10^3/uL (1.0-4.8) 3.0 x10^3/uL (1.0-4.8) Monocytes # (Auto) 0.5 x10^3/uL (0.0-1.1) 0.5 x10^3/uL (0.0-1.1) Eosinophils # (Auto) 0.0 x10^3/uL (0.0-0.7) 0.0 x10^3/uL (0.0-0.7) Basophils # (Auto) 0.1 x10^3/uL (0.0-0.2) 0.1 x10^3/uL (0.0-0.2) Sodium Level 139 mmol/L (136-145) 137 mmol/L (136-145) Potassium Level 3.8 mmol/L (3.5-5.1) 3.6 mmol/L (3.5-5.1) Chloride Level 101 mmol/L (98-107) 102 mmol/L (98-107) Carbon Dioxide Level 23 mmol/L (21-32) 24 mmol/L (21-32) Anion Gap 15 (6-14) 11 (6-14) Blood Urea Nitrogen 16 mg/dL (7-20) 11 mg/dL (7-20) Creatinine 0.8 mg/dL (0.6-1.0) 0.6 mg/dL (0.6-1.0) Estimated GFR (Cockcroft-Gault) 71.8 100.0 BUN/Creatinine Ratio 20 (6-20) Glucose Level 96 mg/dL (70-99) 94 mg/dL (70-99) Lactic Acid Level 1.7 mmol/L (0.4-2.0) Calcium Level 8.8 mg/dL (8.5-10.1) 8.1 mg/dL (8.5-10.1) Total Bilirubin 0.3 mg/dL (0.2-1.0) Aspartate Amino Transf (AST/SGOT) 23 U/L (15-37) Alanine Aminotransferase (ALT/SGPT) 18 U/L (14-59) Alkaline Phosphatase 92 U/L (46-116) VZ-Thb-D-Type Natriuretic Peptide 67 pg/mL (0-124) Total Protein 7.7 g/dL (6.4-8.2) Albumin 3.3 g/dL (3.4-5.0) Albumin/Globulin Ratio 0.8 (1.0-1.7) Urine Collection Type Unknown Urine Color Yellow Urine Clarity Clear Urine pH 5.5 Urine Specific [place] 1.025 Urine Protein Negative mg/dL (NEG-TRACE) Urine Glucose (UA) Negative mg/dL (NEG) Urine Ketones (Stick) 15 mg/dL (NEG) Urine Blood Trace (NEG) Urine Nitrite Negative (NEG) Urine Bilirubin Negative (NEG) Urine Urobilinogen Dipstick 0.2 mg/dL (0.2 mg/dL) Urine Leukocyte Esterase Negative (NEG) Urine RBC Occ /HPF (0-2) Urine WBC Rare /HPF (0-4) Urine Squamous Epithelial Cells Mod /LPF Urine Amorphous Sediment Present /HPF Urine Bacteria 0 /HPF (0-FEW) Urine Granular Casts Occasional /HPF Urine Mucus Mod /LPF Brief Hospital Course 67-year-old female smoker who presents with complaint of productive cough, fever and chills that started a few days ago. Patient also complains of headache and nausea along with pain in both of her lateral rib margins that she states is due to all the coughing. She states that every time she coughs she feels a lot of pressure in her head that she rates at a 9 out of 10. She rates her rib pain 7/10 when she coughs. She denies any neck pain or back pain. Patient states that symptoms are progressively getting worse. She does feel little bit short of breath with exertion. Rapid flu negative. She is concerned her sputum has turned from yellow to sanchez. She quit smoking this past wednesday. After nebulizer treatments overnight for 2 nights and levaquin for community acquired pneumonia she has improved. She feels much better and feels she wishes to go home before "I catch something else". Denies CP or GI symptoms Greater than 30 minutes spent on discharge home with levaquin and combivent inhaler, needs a credit professional at some point. A/P: Shortness of breath - with her history of smoking likely has undiagnosed COPD, nebs for now - home on combivent Community acquired pneumonia - with bilateral infiltrates, will need atypical coverage - levaquin for now Smoker - counseled, she has quit, does not wish for nicotine replacement therapy. Discharge Information Condition at Discharge: Improved Follow Up: Weeks (2) Disposition/Orders: D/C to Home Scheduled Ipratropium/Albuterol Sulfate (Combivent Respimat Inhal) 4 Gm Aer.w.adap, 2 INH IH QID for COPD for 30 Days, #1 Ref 2 Prescribed by: OSIRIS ROBLES MD on 06/10/18 1015 Levofloxacin (Levaquin) 500 Mg Tablet, 1 TAB PO DAILY for pneumonia, #7 Prescribed by: OSIRIS ROBLES MD on 06/10/18 1010 OSIRIS ROBLES MD Jun 10, 2018 10:19
[2018-06-10 11:00] VITALS: BP 115/46
--- NOTE | 2018-06-10 14:41 | NUR ---
Discharge Note: WILLIAM KANG [address] Discharge instructions and discharge home medications reviewed with patient and a copy given. All questions have been answered and understanding verbalized. The following instructions and handouts were given: FF up with PCP in a week Pneumonia easy to read handout Discontinued lines and drains:peripheral IV intact, patient tolerated removal, no complications noted. Prescriptions for levaquin and combivent called to [facility] at 1446. Patient discharged to home with self-care via wheelchair at 1440.
[2018-06-10] MEDS ORDERED: LACTOBACILLUS RHAMNOSUS GG 1 CAPSULE. PO SCH (21:00)
== END 2018-06-10 14:52 | disposition home or self-care (01) | DRG 178 ==
LOC: ER 18:24 → 6 SOUTH 23:10
PROVIDERS: ADMIT Internal Medicine; ATTEND Internal Medicine
DX: J69.0 Pneumonitis due to inhalation of food and vomit (principal); J44.0 Chronic obstructive pulmonary disease with (acute) lower respiratory infection; E44.0 Moderate protein-calorie malnutrition; F41.9 Anxiety disorder, unspecified; F17.210 Nicotine dependence, cigarettes, uncomplicated; Z90.710 Acquired absence of both cervix and uterus; Z90.49 Acquired absence of other specified parts of digestive tract; Z88.6 Allergy status to analgesic agent; Z88.5 Allergy status to narcotic agent; Z88.0 Allergy status to penicillin; Z71.6 Tobacco abuse counseling
CPT/HCPCS: 36415; 70450; 71046; 80048; 80053; 81001; 83605; 83880; 85025; 87040; 87070; 87205; 87804; 93005; 94640; 94760; 96361; 96365; 96375; 96376; 99406; J1650; J1885; J1956; J2405; J3010; J7030; J7620; 99285-25